=== PATIENT | male | born 1960 ===

== ENCOUNTER 2020-11-02 07:31 | Inpatient (IN) | payer SELFPAY ==
[~2020-11-02] VITALS: Ht 180.3 cm; Wt 67.2 kg
--- NOTE | 2020-11-02 07:31 | NUR ---
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
[2020-11-02 08:21] LABS: BASOPHILS % (AUTO) 1 % (0-1); EOSINOPHILS % (AUTO) 4 % (1-7); LYMPHOCYTES % (AUTO) 33 % (22-44); MEAN CORPUSCULAR HEMOGLOBIN 28.8 pg (27.5-34.5); MEAN CORPUSCULAR HGB CONC 32.5 g/dL (33.2-36.2); MEAN PLATELET VOLUME 7.3 fL (7.4-10.4); MONOCYTES % (AUTO) 9 % (2-9); NEUTROPHILS % (AUTO) 53 % (42-75); PLATELET COUNT 252 x10^3/uL (130-400); RED BLOOD COUNT 4.97 x10^6/uL (4.38-5.82)
[2020-11-02 08:33] LABS: ALBUMIN 3.3 g/dL (3.4-5.0); ANION GAP 8 mmol/L (5-15); CALCIUM 8.5 mg/dL (8.5-10.1); CHLORIDE 112 mmol/L (98-107); CREATININE 1.24 mg/dL (0.7-1.3)
[2020-11-02 08:36] LABS: TROPONIN I 0.048 ng/mL (0.000-0.045)
--- NOTE | 2020-11-02 09:01 | NUR ---
PT LAYING ON GURNEY MOSTLY SLEEPING BUT AWAKENS & RESPONDS APPROP TO STAFF, NAD AT REST, COMFORT MEASURES PROVIDED, CALL LIGHT WITHIN REACH.
[2020-11-02 09:40] LABS: TROPONIN I 0.162 ng/mL (0.000-0.045)
[2020-11-02] MEDS ORDERED: FUROSEMIDE 40 MG/4 ML IV ONE (10:00)
--- NOTE | 2020-11-02 10:05 | NUR ---
PT CONTINUES LAYING ON GURNEY MOSTLY SLEEPING BUT AWAKENS & RESPONDS APPROP TO STAFF, NAD AT REST, NO NEEDS AT THIS TIME, CALL LIGHT WITHIN REACH.
[2020-11-02] MEDS ORDERED: FUROSEMIDE 40 MG/4 ML ONE (10:10)
[2020-11-02] MEDS ORDERED: ONDANSETRON 2MG/ML, 2ML IVPush PRN (10:30)
--- NOTE | 2020-11-02 11:04 | NUR ---
PT LAYING ON GURNEY SLEEPING BUT AWAKENS & RESPONDS APPROP TO STAFF, NAD, NO NEEDS AT THIS TIME, CALL LIGHT WITHIN REACH.
[2020-11-02 11:12] LABS: ALANINE AMINOTRANSFERASE 95 U/L (12-78); ALBUMIN 3.2 g/dL (3.4-5.0); BILIRUBIN, DIRECT 0.2 mg/dL (0.1-0.2)
[2020-11-02 11:16] LABS: ALKALINE PHOSPHATASE 119 U/L (45-117); BILIRUBIN,INDIRECT 0.2 mg/dL (0.0-2.0); BILIRUBIN,TOTAL 0.4 mg/dL (0.2-1.0); TOTAL PROTEIN 7.2 g/dL (6.4-8.2)
--- NOTE | 2020-11-02 11:59 | NUR ---
PT CONTINUES TO LAY ON GURNEY MOSTLY SLEEPING BUT AWAKENS & RESPONDS APPROP TO STAFF, NAD, NO NEEDS AT THIS TIME, CALL LIGHT WITHIN REACH. PT TO CT.
[2020-11-02] MEDS ORDERED: HEPARIN 25,000 UNITS/250ML PMX 250 ML IV PRN ×2 (12:00→13:30)
[2020-11-02] MEDS ORDERED: CLOPIDOGREL 300 MG TABLET PO ONE (12:00)
[2020-11-02 12:05] LABS: AMPHETAMINE SCREEN, URINE Negative (Negative); BARBITURATE SCREEN, URINE Negative (Negative); BENZODIAZEPINE SCREEN, URINE Negative (Negative); CANNABINOID SCREEN, URINE Negative (Negative); COCAINE SCREEN, URINE Negative (Negative); METHADONE SCREEN, URINE Negative (Negative); OPIATE SCREEN, URINE Negative (Negative)
[2020-11-02] MEDS ORDERED: PERMETHRIN CRM 5%, 60GM ONE (12:18)
[2020-11-02] MEDS ORDERED: PLEASE ENTER MEASURED WEIGHT MC SCH (12:30)
[2020-11-02] MEDS ORDERED: PERMETHRIN CRM 5%, 60GM TP ONE (12:30)
[2020-11-02 13:09] VITALS: BP 131/91
[2020-11-02] MEDS ORDERED: HEPARIN 5,000 UNITS/ML, 1ML IV ONE (13:30)
[2020-11-02] MEDS: ISOSORBIDE DINITRATE 10 MG TABLET PO SCH ×3 (13:31→21:53)
[2020-11-02 15:15] VITALS: BP 139/96
[2020-11-02] MEDS ORDERED: MAGNESIUM SULFATE PMX 2GM/50ML 50 ML IV ONE (15:30)
[2020-11-02] MEDS: FUROSEMIDE 20 MG/2 ML IV SCH (16:24)
[2020-11-02] MEDS: SPIRONOLACTONE 25 MG TABLET PO SCH (16:24)
[2020-11-02 19:07] VITALS: BP 129/84
[2020-11-02] MEDS ORDERED: ATORVASTATIN 40 MG TABLET PO SCH (21:00)
[2020-11-02] MEDS: HEPARIN 5,000 UNITS/ML, 1ML IV PRN (21:53)
[2020-11-03 02:43] VITALS: BP 125/86
[2020-11-03 04:50] LABS: BASOPHILS % (AUTO) 1 % (0-1); EOSINOPHILS % (AUTO) 4 % (1-7); LYMPHOCYTES % (AUTO) 20 % (22-44); MEAN CORPUSCULAR HEMOGLOBIN 28.7 pg (27.5-34.5); MEAN CORPUSCULAR HGB CONC 32.9 g/dL (33.2-36.2); MEAN PLATELET VOLUME 7.7 fL (7.4-10.4); MONOCYTES % (AUTO) 9 % (2-9); NEUTROPHILS % (AUTO) 66 % (42-75); PLATELET COUNT 258 x10^3/uL (130-400); RED CELL DISTRIBUTION WIDTH 17.5 % (9.4-14.8)
[2020-11-03 05:02] LABS: ALBUMIN 2.8 g/dL (3.4-5.0); ANION GAP 3 mmol/L (5-15); CALCIUM 8.6 mg/dL (8.5-10.1); CHLORIDE 107 mmol/L (98-107)
[2020-11-03 05:05] LABS: ALANINE AMINOTRANSFERASE 78 U/L (12-78); ALKALINE PHOSPHATASE 107 U/L (45-117); BILIRUBIN,TOTAL 0.6 mg/dL (0.2-1.0); CREATININE 1.31 mg/dL (0.7-1.3); TOTAL PROTEIN 6.5 g/dL (6.4-8.2)
[2020-11-03] MEDS: HEPARIN 5,000 UNITS/ML, 1ML IV PRN (05:31)
[2020-11-03 07:40] VITALS: BP 119/86
[2020-11-03] MEDS: SPIRONOLACTONE 25 MG TABLET PO SCH (07:41)
[2020-11-03] MEDS: ISOSORBIDE DINITRATE 10 MG TABLET PO SCH (07:41)
[2020-11-03] MEDS: FUROSEMIDE 20 MG/2 ML IV SCH (07:41)
[2020-11-03] MEDS ORDERED: METOPROLOL SUCCINATE 25 MG TAB.ER.24H PO SCH (08:30)
[2020-11-03] MEDS ORDERED: POTASSIUM CHLORIDE 20 MEQ TAB.ER.PRT PO ONE (08:30)
[2020-11-03] MEDS ORDERED: CLOPIDOGREL 75 MG TABLET PO SCH (09:00)
[2020-11-03] MEDS ORDERED: ASPIRIN 81 MG TABLET EC PO SCH (09:00)
[2020-11-03] MEDS ORDERED: CLOP75TA PO (11:12)
[2020-11-03] MEDS ORDERED: LISI5TAB7 PO (11:12)
[2020-11-03] MEDS ORDERED: ASPI81TA45 PO (11:12)
[2020-11-03] MEDS ORDERED: SPIR25TA PO (11:12)
[2020-11-03] MEDS ORDERED: FURO40TA6 PO (11:12)
[2020-11-03] MEDS ORDERED: NITR0.4T41 SL (11:12)
[2020-11-03] MEDS ORDERED: METO25TA91 PO (11:12)
[2020-11-03] MEDS ORDERED: ATOR40TA78 PO (11:12)
[2020-11-04] MEDS ORDERED: FUROSEMIDE 40 MG TABLET PO SCH (09:00)
[2020-11-04] MEDS ORDERED: LISINOPRIL 5 MG TABLET PO SCH (09:00)
== END 2020-11-03 13:05 | disposition home or self-care (01) | DRG 311 ==
LOC: ED 12:08 → 5SO 12:37
PROVIDERS: ADMIT Internal Medicine Cardiovascular Disease; ATTEND Internal Medicine
DX: I24.9 Acute ischemic heart disease, unspecified (principal); F10.10 Alcohol abuse, uncomplicated; F15.90 Other stimulant use, unspecified, uncomplicated; F17.200 Nicotine dependence, unspecified, uncomplicated; I44.7 Left bundle-branch block, unspecified; I50.9 Heart failure, unspecified; I25.2 Old myocardial infarction; Z59.0 Homelessness
CPT/HCPCS: 36415; 70450; 71045; 80048; 80053; 80076; 80307; 82040; 83880; 84443; 84484; 85025; 85520; 93005; 96374; 96375; G0378; J1644; J1940; J3475